=== PATIENT | female | born 1990 | race Asian ===

== ENCOUNTER 2020-07-28 08:08 | Outpatient (CLI) | payer BC, OTHER ==
[2020-07-28 16:51] LABS: SARS-CoV-2 MS2 Positive; SARS-CoV-2 N Gene Negative; SARS-CoV-2 S Gene Negative; SARS-CoV-2 by NAA Not Detected (NotDetected); SARS-CoV-2 orf1ab Negative
== END 2020-07-28 08:09 | disposition home or self-care (01) ==
LOC: LABBT 08:08
PROVIDERS: ATTEND Obstetrics & Gynecology
DX: Z20.828 Contact with and (suspected) exposure to other viral communicable diseases (principal)
CPT/HCPCS: 87635; U0003

== ENCOUNTER 2020-07-28 11:11 | Inpatient (IN) | payer BC, OTHER ==
[2020-07-28 11:34] VITALS: BMI 24.3
[2020-07-28] MEDS ORDERED: Misoprostol 200 MCG TAB PR PRN (11:58)
[2020-07-28] MEDS ORDERED: Carboprost 250 MCG/ML AMP IM PRN (11:58)
[2020-07-28] MEDS ORDERED: NS / Oxytocin 40 units/1000ml 1,000 ML IV PRN (11:58)
[2020-07-28] MEDS ORDERED: Lidocaine 1% (PF) 30 ML VIAL SC PRN (11:58)
[2020-07-28] MEDS ORDERED: Butorphanol Tartrate 1 MG/ML VIAL SLOW IVP PRN (11:58)
[2020-07-28] MEDS ORDERED: Ondansetron PF 4 MG/2 ML Vial IVP PRN ×2 (11:58→16:52)
[2020-07-28] MEDS ORDERED: HYDROcodone/Acetaminophen 5/325 mg Tablet PO PRN (11:58)
[2020-07-28] MEDS ORDERED: Promethazine HCl 25 MG/ML VIAL IM PRN ×2 (11:58→16:52)
[2020-07-28] MEDS ORDERED: Methylergonovine 0.2 MG/ML VIAL IM PRN (11:58)
[2020-07-28] MEDS ORDERED: Diphenoxylate HCl/Atropine Tablet PO PRN ×2 (11:58)
[2020-07-28] MEDS ORDERED: hydrALAZINE 20 MG/ML VIAL SLOW IVP PRN ×2 (11:58→22:32)
[2020-07-28] MEDS ORDERED: Acetaminophen 500 MG TAB PO PRN (11:58)
[2020-07-28] MEDS ORDERED: Ibuprofen 800 MG TAB PO PRN (11:58)
[2020-07-28] MEDS ORDERED: Penicillin G Potassium 5 MILL.UNITS in Sodium Chloride 0.9% 100 ML IVPB SCH (12:00)
[2020-07-28] MEDS ORDERED: NS w/ Oxytocin 10 units 500 ML IV SCH (12:00)
[2020-07-28 12:44] LABS: Hemoglobin 12.1 g/dL (12.0-16.0); Mean Corpuscular HGB CONC 34.4 g/dL (32.0-36.0); Mean Corpuscular Hemoglobin 34.3 pg (27.0-31.0); Mean Corpuscular Volume 99.8 fL (78.0-98.0); Mean Platelet Volume 8.3 fL (7.4-10.4); Platelet Count 191 thou/uL (130-400); RBC Distribution Width 11.8 % (11.5-14.5); Red Blood Cell (RBC) Count 3.51 mill/uL (4.20-5.40); White Blood Cell (WBC) Count 7.5 thou/uL (4.8-10.8)
[2020-07-28 13:20] LABS: Syphilis Antibody Nonreactive (Nonreactive); Syphilis Antibody Index 0.06 S/CO (<1.00 Non-Reactive)
[2020-07-28 13:23] LABS: HBSAg Index 0.16 S/CO (0-0.99); Hep B Surf Ag Non-Reactive S/CO (NonReactive)
[2020-07-28] MEDS ORDERED: Penicillin G 2.5 MILL.units 2.5 MILL.UNITS in Premix Bag 1 BAG IVPB SCH (16:00)
[2020-07-28] MEDS ORDERED: Fentanyl 4 mcg/Bup 0.1% Cadd 100 ML ONE (16:08)
[2020-07-28] MEDS ORDERED: diphenhydrAMINE 50 MG/ML VIAL IVP PRN (16:52)
[2020-07-28] MEDS ORDERED: Lactated Ringer's 500 ML IV PRN (16:52)
[2020-07-28] MEDS ORDERED: Acetaminophen 325 MG TAB PO PRN (16:52)
[2020-07-28] MEDS ORDERED: EPHEDRINE 25 MG/5 ML SYRINGE SLOW IVP PRN (16:52)
[2020-07-28] MEDS ORDERED: Naloxone HCl 0.4 mg/ml Vial IVP PRN ×2 (16:52)
[2020-07-28] MEDS ORDERED: Communication Order-Pharmacy FS SCH (17:00)
[2020-07-28] MEDS ORDERED: Fentanyl 4 mcg/Bupivacaine 0.1% Cassette 100 ML EPIDURAL SCH (17:00)
[2020-07-28] MEDS: Lactated Ringer's 1,000 ML IV SCH (17:22)
[2020-07-28] MEDS ORDERED: NS / Oxytocin 40 units/1000ml 1,000 ML ONE (18:50)
[2020-07-28] MEDS ORDERED: Lidocaine 1% (PF) 30 ML VIAL ONE (18:50)
--- NOTE | 2020-07-28 22:24 | PDOC.OPDEL ---
OB Operative/Delivery Note Delivery Dr/Surgeon: Ilan Pre-Delivery Diagnosis: medically indicated induction Procedure/Post Delivery Dx: spontaneous vaginal delivery Weeks gestation: 39 Anesthesia: epidural - Findings A Sex: male - 1 min: 8 - 5 min: 9 - Additional Findings/Plan Placenta delivered: spontaneous Repaired Obstetrical Laceration: 2nd degree (and right labial minoral) Estimated blood loss: 250ml Post delivery plan: routine recovery (2 green top cord blood tubes collected for chromosomes--Dr Crespo notified and orders sent.)
[2020-07-28] MEDS ORDERED: Lanolin Ointment 7 GM TUBE TOP PRN (22:32)
[2020-07-28] MEDS ORDERED: Bisacodyl 10 MG SUPP PR PRN (22:32)
[2020-07-28] MEDS ORDERED: Adacel (T-DAP) 0.5 ML SYRINGE IM ONE (22:32)
[2020-07-28] MEDS ORDERED: Preparation H Ointment 28 GM TUBE PR PRN (22:32)
[2020-07-28] MEDS ORDERED: Benzocaine-Menthol 82.5 ML CAN TOP PRN (22:32)
[2020-07-28] MEDS ORDERED: traMADol HCl 50 MG TAB PO PRN (22:32)
[2020-07-28] MEDS ORDERED: Milk Of Magnesia 30 ML UDCUP PO PRN (22:32)
[2020-07-28] MEDS ORDERED: NS / Oxytocin 40 units/1000ml 1,000 ML IV SCH (22:45)
[2020-07-29] MEDS: Lactated Ringer's 1,000 ML IV SCH (00:59)
[2020-07-29] MEDS ORDERED: Sodium Chloride 0.9% 10 ML ONE (03:26)
[2020-07-29] MEDS ORDERED: Ibuprofen 800 MG TAB PO SCH (06:00)
--- NOTE | 2020-07-29 08:02 | PDOC.PP ---
Post Progress Note Post Day #: 0-1 PO intake tolerated: yes Flatus: yes Ambulation: yes Vital Signs (12 hours) Temp Pulse Resp BP 07/29/20 04:00 97.9 F 56 L 16 98/56 L 07/29/20 02:30 98.7 F 48 L 16 112/67 07/29/20 01:30 98.3 F 49 L 16 116/69 07/29/20 00:30 98.4 F 50 L 18 115/65 Weight Weight 133 lb - Physical Examination Abdominal: no distention, appropriately TTP Extremities: negative homans (B) Result Diagrams: 07/28/20 12:24 Additional Labs: Post Labs Hep Bs Antigen Non-Reactive S/CO (NonReactive) 07/28/20 12:24 Blood Type O POSITIVE 07/28/20 13:04 - Assessment/Plan Post day 0-1. Doing well. Routine care. Anticipate discharge 07/30-AM
[2020-07-29] MEDS: Ferrous Sulfate 325 MG TAB PO SCH ×2 (09:22→16:06)
[2020-07-29] MEDS: Prenatal Vitamin 1 TAB PO SCH (11:13)
[2020-07-29] MEDS: Ibuprofen 800 MG TAB PO SCH ×2 (11:13→19:11)
[2020-07-29] MEDS: Docusate Calcium (SURFAK) 240 MG CAP PO SCH ×3 (11:15→21:27)
[2020-07-29] MEDS ORDERED: EPHEDRINE 25 MG/5 ML SYRINGE ONE (16:07)
[2020-07-30] MEDS: Ibuprofen 800 MG TAB PO SCH ×3 (02:00→09:29)
[2020-07-30] MEDS: Ferrous Sulfate 325 MG TAB PO SCH (08:04)
[2020-07-30 08:06] VITALS: BP 103/53; TEMP 97.8
[2020-07-30] MEDS: Prenatal Vitamin 1 TAB PO SCH (09:29)
[2020-07-30] MEDS: Docusate Calcium (SURFAK) 240 MG CAP PO SCH (09:29)
== END 2020-07-30 18:32 | disposition home or self-care (01) | DRG 807 ==
LOC: L&D 11:11 → 3SW 07-29 00:43 → EDSTATUS 08-04 14:25
PROVIDERS: ADMIT Obstetrics & Gynecology; ATTEND Obstetrics & Gynecology
PROC: 10E0XZZ Delivery of Products of Conception, External Approach (ICD-10-PCS; principal; 2020-07-29)
PROC: 0KQM0ZZ Repair Perineum Muscle, Open Approach (ICD-10-PCS; 2020-07-29)
DX: O36.8130 Decreased fetal movements, third trimester, not applicable or unspecified (principal); Z37.0 Single live birth; Z3A.39 39 weeks gestation of pregnancy; O35.8XX0 Maternal care for other (suspected) fetal abnormality and damage, not applicable or unspecified; O70.1 Second degree perineal laceration during delivery; Z20.828 Contact with and (suspected) exposure to other viral communicable diseases
CPT/HCPCS: 36415; 51702; 85027; 86780; 86850; 86900; 86901; 87340; 87635; J2001; J2405; J2540; J2590; J3490; U0003